=== PATIENT | male | born 1960 | race Caucasian/White ===

== ENCOUNTER → 2018-12-01 12:01 | Outpatient (CLI) | payer BC, SELFPAY ==
--- NOTE | 2018-12-01 12:15 | XR_ITS ---
XR chest 2V HISTORY: Shortness of breath ITS.REASON: sob ORDERING PHYSICIAN: Ba Hooks MD PATIENT AGE: 58 years COMPARISON: None FINDINGS: The cardiomediastinal silhouette and pulmonary vascularity are within normal limits. Atelectatic or fibrotic changes are present in the left lung base. The remaining lungs are clear. There are degenerative changes in the AC joints bilaterally and in the thoracic spine. No acute bony abnormalities. IMPRESSION: Mild left basilar atelectasis or fibrosis otherwise negative
== END ==
PROVIDERS: Visit Provider Internal Medicine
DX: I10 Essential (primary) hypertension (principal); I48.0 Paroxysmal atrial fibrillation; R06.02 Shortness of breath; R07.9 Chest pain, unspecified; Z72.0 Tobacco use
CPT/HCPCS: 71046